=== PATIENT | female | born 1970 | race Caucasian/White ===

== ENCOUNTER 2017-02-08 01:47 | Emergency (ER) | payer SELFPAY ==
[~2017-02-08] VITALS: Ht 165.1 cm; Wt 72.6 kg
[~2017-02-08 01:47] MED LIST: NAPR500T8 PO
--- NOTE | 2017-02-08 02:05 | PHYS DOC ---
Past Medical History Past Medical History: Anxiety, Cancer, GERD Additional Past Medical Histor: COLON CA Past Surgical History: Cancer Surgery, Cholecystectomy, Tonsillectomy Additional Past Surgical Histo: SUBTOTAL COLECTOMY Alcohol Use: Occasionally Drug Use: None Adult General Chief Complaint Chief Complaint: ALCOHOL INTOXICATION HPI HPI Patient is a 46 year old email who presents with moderate nausea vomiting and general illness after drinking too much alcohol. She apparently passed out at home and was vomiting. Review of Systems Review of Systems Constitutional: Denies fever or chills [] Eyes: Denies change in visual acuity, redness, or eye pain [] HENT: Denies nasal congestion or sore throat [] Respiratory: Denies cough or shortness of breath [] Cardiovascular: No additional information not addressed in HPI [] GI: Denies abdominal pain, nausea, vomiting, bloody stools or diarrhea [] : Denies dysuria or hematuria [] Musculoskeletal: Denies back pain or joint pain [] Integument: Denies rash or skin lesions [] Neurologic: Denies headache, focal weakness or sensory changes [] Endocrine: Denies polyuria or polydipsia [] Current Medications Current Medications Current Medications Medications (Trade) Dose Ordered Sig/Larry Start Time Stop Time Status Last Admin Dose Admin Albuterol/ Ipratropium (Duoneb) 3 ml STK-MED ONCE 02/08/17 02:14 02/08/17 02:15 DC Ondansetron HCl (Zofran) 4 mg 1X ONCE 02/08/17 02:30 02/08/17 02:31 DC 02/08/17 02:23 4 MG Sodium Chloride 1,000 ml @ 1,000 mls/hr 1X ONCE 02/08/17 02:30 02/08/17 03:29 DC 02/08/17 02:23 1,000 MLS/HR Allergies Allergies Allergies Coded Allergies Type Severity Reaction Last Updated Verified Sulfa (Sulfonamide Antibiotics) Allergy Intermediate 02/08/17 Yes prochlorperazine Allergy Intermediate 02/08/17 Yes promethazine Allergy Intermediate 02/08/17 Yes Physical Exam Physical Exam Constitutional: Well developed, well nourished, mild acute distress, non-toxic appearance. [] HENT: Normocephalic, atraumatic, bilateral external ears normal, oropharynx moist, no oral exudates, nose normal. [] Eyes: PERRLA, EOMI, conjunctiva normal, no discharge. [] Neck: Normal range of motion, no tenderness, supple, no stridor. [] Cardiovascular:Heart rate regular rhythm, no murmur [] Lungs & Thorax: Bilateral breath sounds clear to auscultation [] Abdomen: Bowel sounds normal, soft, no tenderness, no masses, no pulsatile masses. [] Skin: Warm, dry, no erythema, no rash. [] Back: No tenderness, no CVA tenderness. [] Extremities: No tenderness, no cyanosis, no clubbing, ROM intact, no edema. [] Neurologic: Alert and oriented X 3, normal motor function, normal sensory function, no focal deficits noted. [] Psychologic: Affect normal, judgement normal, mood normal. [] Current Patient Data Vital Signs Vital Signs Date Time Temp Pulse Resp B/P (MAP) Pulse Ox O2 Delivery O2 Flow Rate FiO2 02/08/17 03:00 88 124/88 (100) 96 Room Air 02/08/17 02:06 98.0 27 98.0 Lab Values Laboratory Tests Test 02/08/17 02:15 White Blood Count 6.9 x10^3/uL (4.0-11.0) Red Blood Count 4.62 x10^6/uL (3.50-5.40) Hemoglobin 15.3 g/dL (12.0-15.5) Hematocrit 44.3 % (36.0-47.0) Mean Corpuscular Volume 96 fL (79-100) Mean Corpuscular Hemoglobin 33 pg (25-35) Mean Corpuscular Hemoglobin Concent 35 g/dL (31-37) Red Cell Distribution Width 13.0 % (11.5-14.5) Platelet Count 186 x10^3/uL (140-400) Neutrophils (%) (Auto) 54 % (31-73) Lymphocytes (%) (Auto) 37 % (24-48) Monocytes (%) (Auto) 4 % (0-9) Eosinophils (%) (Auto) 5 % (0-3) H Basophils (%) (Auto) 1 % (0-3) Neutrophils # (Auto) 3.7 x10^3uL (1.8-7.7) Lymphocytes # (Auto) 2.6 x10^3/uL (1.0-4.8) Monocytes # (Auto) 0.2 x10^3/uL (0.0-1.1) Eosinophils # (Auto) 0.3 x10^3/uL (0.0-0.7) Basophils # (Auto) 0.1 x10^3/uL (0.0-0.2) Sodium Level 148 mmol/L (136-145) H Potassium Level 3.8 mmol/L (3.5-5.1) Chloride Level 108 mmol/L (98-107) H Carbon Dioxide Level 26 mmol/L (21-32) Anion Gap 14 (6-14) Blood Urea Nitrogen 13 mg/dL (7-20) Creatinine 0.9 mg/dL (0.6-1.0) Estimated GFR (Cockcroft-Gault) 68.0 BUN/Creatinine Ratio 14 (6-20) Glucose Level 102 mg/dL (70-99) H Calcium Level 9.8 mg/dL (8.5-10.1) Magnesium Level 2.5 mg/dL (1.8-2.4) H Total Bilirubin 2.1 mg/dL (0.2-1.0) H Aspartate Amino Transferase (AST) 22 U/L (15-37) Alanine Aminotransferase (ALT) 17 U/L (14-59) Alkaline Phosphatase 59 U/L (46-116) Total Protein 8.7 g/dL (6.4-8.2) H Albumin 4.8 g/dL (3.4-5.0) Albumin/Globulin Ratio 1.2 (1.0-1.7) Ethyl Alcohol Level 236 mg/dL (0-10) H Laboratory Tests 02/08/17 02:15 Laboratory Tests 02/08/17 02:15 EKG EKG [] Radiology/Procedures Radiology/Procedures [] Course & Med Decision Making Course & Med Decision Making Pertinent Labs and Imaging studies reviewed. (See chart for details) Plan to treat with IV fluids and nausea medications and check some basic labs.[ Prior to dismissal patient was awake alert and ambulating to the bathroom without difficulty or assistance.] Dragon Disclaimer Dragon Disclaimer This electronic medical record was generated, in whole or in part, using a voice recognition dictation system. Departure Departure Impression: Primary Impression: Vomiting Additional Impression: Alcohol intoxication Disposition: HOME, SELF-CARE Condition: STABLE Referrals: JESÚS POWELL MD (PCP) Scripts Ondansetron (ZOFRAN ODT) 4 Mg Tab.rapdis 4 MG PO TID Y for NAUSEA/VOMITING, #10 TAB Prov: MADISYN MORENO MD 02/08/17 Problem Qualifiers MADISYN MORENO MD Feb 08, 2017 02:05
[2017-02-08] MEDS ORDERED: IPRATRPIUM/ALBUTEROL 0.5/2.5MG 3 ML NEBU. ONE (02:14)
[2017-02-08 02:22] LABS: BASO # 0.1 x10^3/uL (0.0-0.2); BASO % 1 % (0-3); EOS % 5 % (0-3); HEMATOCRIT 44.3 % (36.0-47.0); HEMOGLOBIN 15.3 g/dL (12.0-15.5); LYMPH # 2.6 x10^3/uL (1.0-4.8); LYMPH % 37 % (24-48); MEAN CORPUSCULAR HEMOGLOBIN 33 pg (25-35); MEAN CORPUSCULAR HGB CONC 35 g/dL (31-37); MEAN CORPUSCULAR VOLUME 96 fL (79-100); MONO % 4 % (0-9); NEUT % 54 % (31-73); PLATELET COUNT 186 x10^3/uL (140-400); RED BLOOD COUNT 4.62 x10^6/uL (3.50-5.40); WHITE BLOOD COUNT 6.9 x10^3/uL (4.0-11.0)
[2017-02-08 02:29] LABS: CALCIUM 9.8 mg/dL (8.5-10.1); CREATININE 0.9 mg/dL (0.6-1.0); POTASSIUM 3.8 mmol/L (3.5-5.1)
[2017-02-08] MEDS ORDERED: ONDANSETRON PF 4 MG/2 ML VIAL. IV ONE (02:30)
[2017-02-08] MEDS ORDERED: IV NORMAL SALINE 1000ML BAG 1,000 ML IV ONE (02:30)
[2017-02-08 02:34] LABS: ALBUMIN 4.8 g/dL (3.4-5.0); ALBUMIN/GLOBULIN RATIO 1.2 (1.0-1.7); MAGNESIUM 2.5 mg/dL (1.8-2.4); TOTAL BILIRUBIN 2.1 mg/dL (0.2-1.0); TOTAL PROTEIN 8.7 g/dL (6.4-8.2)
[2017-02-08 03:00] VITALS: BP 124/88
[2017-02-08] MEDS ORDERED: ONDA4TAB10 PO (03:53)
== END 2017-02-08 04:04 | disposition home or self-care (01) ==
LOC: ER 01:47
DX: F10.129 Alcohol abuse with intoxication, unspecified (principal); F41.9 Anxiety disorder, unspecified; K21.9 Gastro-esophageal reflux disease without esophagitis; Y90.7 Blood alcohol level of 200-239 mg/100 ml; Z90.49 Acquired absence of other specified parts of digestive tract; Z88.2 Allergy status to sulfonamides; Z88.8 Allergy status to other drugs, medicaments and biological substances
CPT/HCPCS: 36415; 80053; 83735; 85025; 96361; 96374; 99284; G0480; J2405; J7030

== ENCOUNTER 2018-02-14 01:15 | Emergency (ER) | payer SELFPAY ==
[~2018-02-14] VITALS: Ht 165.1 cm; Wt 68.0 kg
[~2018-02-14 01:15] MED LIST changes: +ONDA4TAB10 PO
[2018-02-14 02:00] VITALS: BP 105/67
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
== END 2018-02-14 02:08 | disposition home or self-care (01) ==
LOC: ER 01:15
DX: F10.29 Alcohol dependence with unspecified alcohol-induced disorder (principal); I47.1 Supraventricular tachycardia; R47.81 Slurred speech; Y90.9 Presence of alcohol in blood, level not specified; F41.9 Anxiety disorder, unspecified; K21.9 Gastro-esophageal reflux disease without esophagitis; Z90.49 Acquired absence of other specified parts of digestive tract; Z90.710 Acquired absence of both cervix and uterus; Z90.89 Acquired absence of other organs; Z88.2 Allergy status to sulfonamides; Z88.8 Allergy status to other drugs, medicaments and biological substances
CPT/HCPCS: 82962; 99283